=== PATIENT | female | born 1940 | race Two or more races ===

== ENCOUNTER 2017-12-01 11:56 | Outpatient (CLI) | payer MEDICARE, OTHER ==
--- NOTE | 2017-12-01 19:00 | Diagnostic Imaging Report ---
Indication: Pain Technique: XRAY Knee Compl 4v+ L Comparison: None; correlation made to concurrent right knee radiographs Findings: There is no evidence of acute fracture or dislocation. Alignment is preserved. There is very mild degenerative change with mild medial compartment joint space narrowing. No focal soft tissue abnormality is appreciated. No radiopaque foreign body seen. Impression: Mild degenerative change. No evidence of acute fracture or dislocation.
--- NOTE | 2017-12-01 19:02 | Diagnostic Imaging Report ---
Indication: Pain Technique: XRAY Knee Compl 4v+ R Comparison: None; correlation made to concurrent left knee radiographs Findings: There is no evidence of acute fracture or dislocation. Alignment is preserved. There is mild degenerative change with mild medial compartment joint space narrowing and subchondral sclerosis. No focal soft tissue abnormality is appreciated. No radiopaque foreign body seen. Impression: Mild degenerative change. No evidence of acute fracture or dislocation.
== END 2017-12-01 13:56 | disposition home or self-care (01) ==
LOC: RAD 11:56
DX: M25.562 Pain in left knee (principal); M25.561 Pain in right knee